=== PATIENT | male | born 1995 | race Caucasian/White ===

== ENCOUNTER 2018-04-23 15:04 | Emergency (ER) | payer SELFPAY ==
[2018-04-23] MEDS: IBUPROFEN 800 MG TAB PO (16:19)
== END 2018-04-23 16:32 | disposition left against medical advice (07) ==
LOC: FTE 15:04
DX: M25.522 Pain in left elbow (principal)
CPT/HCPCS: 99282

== ENCOUNTER 2018-06-02 11:32 | Emergency (ER) | payer BC | END 2018-06-02 13:04 | disposition home or self-care (01) | LOC: FTE 11:32 | DX: Z00.00 Encounter for general adult medical examination without abnormal findings (principal) | CPT/HCPCS: 99282 ==